=== PATIENT | female | born 1935 | race Two or more races ===

== ENCOUNTER 2018-03-20 00:22 | Inpatient (IN) | payer OTHER ==
[~2018-03-20] VITALS: Ht 147.3 cm; Wt 42.2 kg
== END 2018-03-28 19:25 | disposition home or self-care (01) | DRG 444 ==
LOC: ER 00:22 → SEC-K 12:52 → SURH 12:52
PROC: BW40ZZZ Ultrasonography of Abdomen (ICD-10-PCS; 2018-03-20)
PROC: BF37ZZZ Magnetic Resonance Imaging (MRI) of Pancreas (ICD-10-PCS; 2018-03-20)
PROC: B246ZZZ Ultrasonography of Right and Left Heart (ICD-10-PCS; 2018-03-21)
PROC: 30233N1 Transfusion of Nonautologous Red Blood Cells into Peripheral Vein, Percutaneous Approach (ICD-10-PCS; 2018-03-21)
PROC: 3E0336Z Introduction of Nutritional Substance into Peripheral Vein, Percutaneous Approach (ICD-10-PCS; 2018-03-22)
PROC: 0F798DZ Dilation of Common Bile Duct with Intraluminal Device, Via Natural or Artificial Opening Endoscopic (ICD-10-PCS; principal; 2018-03-23)
DX: K80.64 Calculus of gallbladder and bile duct with chronic cholecystitis without obstruction (principal); K85.10 Biliary acute pancreatitis without necrosis or infection; N13.39 Other hydronephrosis; K50.118 Crohn's disease of large intestine with other complication; K29.00 Acute gastritis without bleeding; E11.22 Type 2 diabetes mellitus with diabetic chronic kidney disease; I12.9 Hypertensive chronic kidney disease with stage 1 through stage 4 chronic kidney disease, or unspecified chronic kidney disease; N18.1 Chronic kidney disease, stage 1; E11.51 Type 2 diabetes mellitus with diabetic peripheral angiopathy without gangrene; E11.649 Type 2 diabetes mellitus with hypoglycemia without coma; E11.65 Type 2 diabetes mellitus with hyperglycemia; D63.1 Anemia in chronic kidney disease

== ENCOUNTER 2018-04-02 03:45 | Emergency (ER) | payer OTHER ==
[~2018-04-02] VITALS: Ht 147.3 cm; Wt 43.5 kg
== END 2018-04-02 17:39 | disposition home or self-care (01) ==
LOC: ER 03:45
DX: K80.20 Calculus of gallbladder without cholecystitis without obstruction (principal); K29.70 Gastritis, unspecified, without bleeding; I10 Essential (primary) hypertension

== ENCOUNTER 2018-04-04 10:39 | Emergency (ER) | payer OTHER ==
[~2018-04-04] VITALS: Ht 147.3 cm; Wt 43.1 kg
[2018-04-04] MEDS ORDERED: PENTOXIFYLINE100 GM (12:02)
[2018-04-04] MEDS ORDERED: AVAPRO300 MG (12:02)
[2018-04-04] MEDS ORDERED: NIFEDIPINE10 MG (12:03)
[2018-04-04] MEDS ORDERED: HYDRALAZINE HCL25 MG (12:03)
[2018-04-04] MEDS ORDERED: ACTIGALL300 MG (12:03)
[2018-04-04] MEDS ORDERED: NEURIN (12:04)
[2018-04-04] MEDS ORDERED: VITAMIN D-32000 UNIT (12:04)
[2018-04-04] MEDS ORDERED: BENTYL10 MG/1 ML (12:05)
[2018-04-04] MEDS ORDERED: PROTONIX40 MG (12:05)
[2018-04-04] MEDS ORDERED: METOCLOPRAMIDE 10 MG (12:06)
[2018-04-04] MEDS ORDERED: CARAFATE1 GM (12:06)
[2018-04-04] MEDS ORDERED: QUESTRAN LIGHT210 GM (12:07)
== END 2018-04-04 14:48 | disposition home or self-care (01) ==
LOC: ER 10:39
DX: K29.70 Gastritis, unspecified, without bleeding (principal); R10.13 Epigastric pain

== ENCOUNTER 2018-09-15 07:26 | Outpatient (CLI) | payer OTHER ==
[~2018-09-15 07:26] MED LIST: ACTIGALL300 MG; AVAPRO300 MG; BENTYL10 MG/1 ML; CARAFATE1 GM; HYDRALAZINE HCL25 MG; METOCLOPRAMIDE 10 MG; NEURIN; NIFEDIPINE10 MG; PENTOXIFYLINE100 GM; PROTONIX40 MG; QUESTRAN LIGHT210 GM; VITAMIN D-32000 UNIT
== END 2018-09-15 15:04 | disposition home or self-care (01) ==
LOC: NUCLEAR 07:26
DX: I20.9 Angina pectoris, unspecified (principal); I34.0 Nonrheumatic mitral (valve) insufficiency; I10 Essential (primary) hypertension
CPT/HCPCS: 78452; 93017; A9500; J0153

== ENCOUNTER 2018-11-14 08:25 | Outpatient (CLI) | payer OTHER | END 2018-11-14 08:39 | disposition home or self-care (01) | LOC: NUCLEAR 08:25 | DX: K80.50 Calculus of bile duct without cholangitis or cholecystitis without obstruction (principal); K80.20 Calculus of gallbladder without cholecystitis without obstruction; K50.00 Crohn's disease of small intestine without complications; K21.9 Gastro-esophageal reflux disease without esophagitis; K31.84 Gastroparesis | CPT/HCPCS: 78264; A9541 ==

== ENCOUNTER 2018-12-02 11:19 | Outpatient (CLI) | payer OTHER | END 2018-12-02 16:17 | disposition home or self-care (01) | LOC: LAB 11:19 | DX: I10 Essential (primary) hypertension (principal); Z80.3 Family history of malignant neoplasm of breast; D63.1 Anemia in chronic kidney disease; K50.90 Crohn's disease, unspecified, without complications; D50.8 Other iron deficiency anemias; D51.8 Other vitamin B12 deficiency anemias; D55.0 Anemia due to glucose-6-phosphate dehydrogenase [G6PD] deficiency; D51.1 Vitamin B12 deficiency anemia due to selective vitamin B12 malabsorption with proteinuria; D51.0 Vitamin B12 deficiency anemia due to intrinsic factor deficiency; C56.9 Malignant neoplasm of unspecified ovary; C54.1 Malignant neoplasm of endometrium; C20 Malignant neoplasm of rectum; C25.9 Malignant neoplasm of pancreas, unspecified ==

== ENCOUNTER 2019-01-11 07:54 | Day surgery (SDC) | payer OTHER | END 2019-01-11 12:25 | disposition home or self-care (01) | LOC: AMB-ERCP 07:54 | DX: K80.50 Calculus of bile duct without cholangitis or cholecystitis without obstruction (principal) ==

== ENCOUNTER 2019-03-05 12:27 | Emergency (ER) | payer OTHER ==
[~2019-03-05] VITALS: Ht 147.3 cm; Wt 40.4 kg
[2019-03-05] MEDS ORDERED: TRADJENTA5 MG (13:19)
[2019-03-05] MEDS ORDERED: AZOR 5-20 MG T1 EACH (13:19)
[2019-03-05] MEDS ORDERED: IMODIUM A-D2 M2 (13:19)
[2019-03-05] MEDS ORDERED: LANTUS SOL100 UNIT/1 (13:20)
[2019-03-05] MEDS ORDERED: BENADRYL25 MG (13:20)
[2019-03-05] MEDS ORDERED: RENAL VITAMIN0.8 MG (13:20)
== END 2019-03-05 23:13 | disposition home or self-care (01) ==
LOC: ER 12:27
DX: I13.0 Hypertensive heart and chronic kidney disease with heart failure and stage 1 through stage 4 chronic kidney disease, or unspecified chronic kidney disease (principal); E11.22 Type 2 diabetes mellitus with diabetic chronic kidney disease; N18.9 Chronic kidney disease, unspecified; I50.9 Heart failure, unspecified; R07.89 Other chest pain; Z79.4 Long term (current) use of insulin

== ENCOUNTER 2019-06-18 19:00 | Emergency (ER) | payer OTHER ==
[~2019-06-18] VITALS: Ht 147.3 cm; Wt 43.1 kg
[~2019-06-18 19:00] MED LIST changes: +AZOR 5-20 MG T1 EACH; +BENADRYL25 MG; +IMODIUM A-D2 M2; +LANTUS SOL100 UNIT/1; +RENAL VITAMIN0.8 MG; +TRADJENTA5 MG
[2019-06-19] MEDS ORDERED: DOLOGESIC 500-1 EACH PO (08:12)
[2019-06-19] MEDS ORDERED: AMOX-CLAV 500-1 EACH PO (08:12)
== END 2019-06-19 10:32 ==
LOC: ER 19:00
DX: N39.0 Urinary tract infection, site not specified (principal); R10.31 Right lower quadrant pain

== ENCOUNTER 2020-04-08 22:47 | Inpatient (IN) | payer OTHER ==
[~2020-04-08] VITALS: Ht 147.3 cm; Wt 46.3 kg
[~2020-04-08 22:47] MED LIST changes: -ABANEU-SL TABL1 EACH
[2020-04-10] MEDS ORDERED: ABANEU-SL TABL1 EACH (08:13)
== END 2020-07-24 23:59 | disposition expired | DRG 4 ==
LOC: ER 22:47 → ICU 04-09 10:22 → ICU-2 04-09 10:22 → ICU 04-10 03:54
PROVIDERS: Surgery; ADMIT Internal Medicine; ATTEND Internal Medicine
PROC: 3E0F7SF Introduction of Other Gas into Respiratory Tract, Via Natural or Artificial Opening (ICD-10-PCS; 2020-04-09)
PROC: 5A1955Z Respiratory Ventilation, Greater than 96 Consecutive Hours (ICD-10-PCS; 2020-04-12)
PROC: 4A033R1 Measurement of Arterial Saturation, Peripheral, Percutaneous Approach (ICD-10-PCS; 2020-04-12)
PROC: 5A09557 Assistance with Respiratory Ventilation, Greater than 96 Consecutive Hours, Continuous Positive Airway Pressure (ICD-10-PCS; 2020-04-12)
PROC: 0BH17EZ Insertion of Endotracheal Airway into Trachea, Via Natural or Artificial Opening (ICD-10-PCS; 2020-04-12)
PROC: 30233N1 Transfusion of Nonautologous Red Blood Cells into Peripheral Vein, Percutaneous Approach (ICD-10-PCS; 2020-04-12)
PROC: 5A09557 Assistance with Respiratory Ventilation, Greater than 96 Consecutive Hours, Continuous Positive Airway Pressure (ICD-10-PCS; 2020-04-12)
PROC: 4A12X4Z Monitoring of Cardiac Electrical Activity, External Approach (ICD-10-PCS; 2020-04-12)
PROC: 02H633Z Insertion of Infusion Device into Right Atrium, Percutaneous Approach (ICD-10-PCS; 2020-04-15)
PROC: 3E0436Z Introduction of Nutritional Substance into Central Vein, Percutaneous Approach (ICD-10-PCS; 2020-04-15)
PROC: 05HM33Z Insertion of Infusion Device into Right Internal Jugular Vein, Percutaneous Approach (ICD-10-PCS; 2020-04-22)
PROC: 5A1D70Z Performance of Urinary Filtration, Intermittent, Less than 6 Hours Per Day (ICD-10-PCS; 2020-04-22)
PROC: 0B110F4 Bypass Trachea to Cutaneous with Tracheostomy Device, Open Approach (ICD-10-PCS; principal; 2020-05-06 19:00)
PROC: B54DZZZ Ultrasonography of Bilateral Lower Extremity Veins (ICD-10-PCS; 2020-05-24)
PROC: 0JBP3ZX Excision of Left Lower Leg Subcutaneous Tissue and Fascia, Percutaneous Approach, Diagnostic (ICD-10-PCS; 2020-06-06)
PROC: 0W9930Z Drainage of Right Pleural Cavity with Drainage Device, Percutaneous Approach (ICD-10-PCS; 2020-06-06)
DX: I21.4 Non-ST elevation (NSTEMI) myocardial infarction (principal); J96.01 Acute respiratory failure with hypoxia; I50.21 Acute systolic (congestive) heart failure; A41.9 Sepsis, unspecified organism; N17.0 Acute kidney failure with tubular necrosis; N18.6 End stage renal disease; K50.10 Crohn's disease of large intestine without complications; E87.2 Acidosis; Q60.3 Renal hypoplasia, unilateral; E87.1 Hypo-osmolality and hyponatremia; K94.23 Gastrostomy malfunction; J90 Pleural effusion, not elsewhere classified; N39.0 Urinary tract infection, site not specified; I13.2 Hypertensive heart and chronic kidney disease with heart failure and with stage 5 chronic kidney disease, or end stage renal disease; I25.119 Atherosclerotic heart disease of native coronary artery with unspecified angina pectoris; K29.60 Other gastritis without bleeding; E11.65 Type 2 diabetes mellitus with hyperglycemia; E11.22 Type 2 diabetes mellitus with diabetic chronic kidney disease; D53.0 Protein deficiency anemia; K21.9 Gastro-esophageal reflux disease without esophagitis; E87.6 Hypokalemia; R13.12 Dysphagia, oropharyngeal phase; R21 Rash and other nonspecific skin eruption; Z20.828 Contact with and (suspected) exposure to other viral communicable diseases; Z99.2 Dependence on renal dialysis; Z79.4 Long term (current) use of insulin; Z20.822 Contact with and (suspected) exposure to COVID-19; Y83.8 Other surgical procedures as the cause of abnormal reaction of the patient, or of later complication, without mention of misadventure at the time of the procedure; F43.21 Adjustment disorder with depressed mood; D63.1 Anemia in chronic kidney disease; B96.29 Other Escherichia coli [E. coli] as the cause of diseases classified elsewhere

== ENCOUNTER → 2020-04-08 | Outpatient (CLI) | payer OTHER ==
[~2020-04-08] MED LIST changes: +ABANEU-SL TABL1 EACH; +AMOX-CLAV 500-1 EACH PO; +DOLOGESIC 500-1 EACH PO
== END | disposition home or self-care (01) ==
LOC: OFIC 805 11:00
PROVIDERS: ATTEND Otolaryngology
DX: H93.8X3 Other specified disorders of ear, bilateral (principal); R42 Dizziness and giddiness; J30.89 Other allergic rhinitis; K21.9 Gastro-esophageal reflux disease without esophagitis